=== PATIENT | female | born 2005 | race Two or more races ===

== ENCOUNTER 2025-01-26 03:13 | Emergency (ER) | payer MEDICAID ==
[~2025-01-26] VITALS: Ht 162.6 cm; Wt 63.5 kg
[2025-01-26 03:25] VITALS: BP 133/79; PULSE 140; RESP 24; TEMP 97.8; O2SAT 99
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
== END 2025-01-26 04:10 ==
LOC: EDBD 03:13 → ER 03:13
DX: T74.21XA Adult sexual abuse, confirmed, initial encounter (principal); Y92.89 Other specified places as the place of occurrence of the external cause

== ENCOUNTER 2025-05-23 05:10 | Emergency (ER) | payer MEDICAID ==
[~2025-05-23] VITALS: Ht 170.2 cm; Wt 81.0 kg
[2025-05-23 05:52] VITALS: PULSE 115; RESP 18; TEMP 98.1; O2SAT 97
--- NOTE | 2025-05-23 06:51 | ED.PDOC ---
Altered Mental Status HPI Comments A 19 year-old female presents to the ED via EMS with a chief complaint of ETOH intoxification. Per EMS, patient is experiencing head pain, neck pain, and associated right great toe pain with nail trauma. Upon evaluation by ED physician, patient is disoriented and not answering questions. Chief Complaint: ETOH Time Seen by MD: 06:30 Primary Care Provider: JAI Reviewed Notes: Ux Developer Designer Notes, Medications, Allergies Allergies: Coded Allergies: NO KNOWN ALLERGIES (Unverified , 08/11/16) Information Source: Emergency Med Personnel Mode of Arrival: EMS Severity: Moderate Duration: Since onset Associated Signs and Symptoms: Other (Head Pain, Neck Pain, ETOH Intoxification, Right Great Toe Pain ) Past Medical History PAST MEDICAL HISTORY: Anxiety Surgical History: Denies all surgeries STATE MANAGER History: Denies all STATE MANAGER Hx Family History Family History: Unknown Social History Smoker: Non-Smoker Alcohol: Denies ETOH Use Drugs: Denies Drug Use Lives In: Home X-Ray, Labs, Meds, VS Vital Signs Date Time Temp Pulse Resp B/P (MAP) Pulse Ox O2 Delivery O2 Flow Rate FiO2 05/23/25 05:52 115 18 97 Room Air* 0 21 05/23/25 05:52 98.1 114 18 108/71 (83) 97 98.1 05/23/25 05:10 98.3 120 20 133/72 (92) 97 98.3 SEPSIS Sepsis Screen Date sepsis recognized/suspect: May 23, 2025 Time Sepsis recognized/suspect: 0555 Recent Procedure: No On Antibiotic Therapy: No Respiratory Rate >20: No Heart Rate >90: No Temp<36 C (96.8 F) or >38.3 C: No SBP <90 or MAP <65 mmHG: No New Acute Mental Status Change: No Is the patient on CPAP, BIPAP,: No Physician Orders Complete Blood Count (05/23/25 07:11) Urinalysis (05/23/25 07:11) Blood Alcohol (05/23/25 07:11) Sodium Chloride 0.9% (05/23/25 07:15) Heplock Iv (05/23/25 07:11) Magnesium (05/23/25 07:11) Basic Metabolic Panel (05/23/25 07:11) Vital Signs Date Time Temp Pulse Resp B/P (MAP) Pulse Ox O2 Delivery O2 Flow Rate FiO2 05/23/25 05:52 115 18 97 Room Air* 0 21 05/23/25 05:52 98.1 114 18 108/71 (83) 97 98.1 05/23/25 05:10 98.3 120 20 133/72 (92) 97 98.3 Heart Score Heart Score: Heart Score Response (Comments) Value History N/A 0 EKG N/A 0 Age N/A 0 Risk Factors N/A 0 Troponin N/A 0 Total 0 I personally scribed for JUAN PABLO AVILES MD ([email or web address]) on 05/23/25 at 06:51. Electronically submitted by Rachna Victor ([place]). I personally scribed for JUAN PABLO AVILES MD ([email or web address]) on 05/23/25 at 07:20. Electronically submitted by Rachna Victor ([place]). JUAN PABLO AVILES MD May 23, 2025 06:51
--- NOTE | 2025-05-23 07:23 | ED.PDOC ---
History of Present Illness HPI Comments A 19 year-old female, with a PMHX of Anxiety, presents to the ED via EMS with a chief complaint of head and neck pain following ETOH intoxification. Per EMS, patient is experiencing head pain and associated right great toe pain with nail trauma. Upon evaluation by ED physician, patient is disoriented and not answering questions. Chief Complaint: ETOH Time Seen by MD: 06:30 Primary Care Provider: JAI Reviewed Notes: Sound Mixer Notes, Medications, Allergies Allergies: Coded Allergies: NO KNOWN ALLERGIES (Unverified , 08/11/16) Information Source: Emergency Med Personnel Mode of Arrival: EMS Severity: Moderate Timing: Hours Duration: Since onset Prehospital treatment: None Context: ETOH Intoxification Quality Moderate Associated signs and symptoms Head pain, Neck Pain, Right Great Toe Pain Past Medical History PAST MEDICAL HISTORY: Anxiety Surgical History: Denies all surgeries CORPORATE TRAVEL EXPERT History: Denies all CORPORATE TRAVEL EXPERT Hx Family History Family History: Unknown Social History Smoker: Non-Smoker Alcohol: Occasionally Drugs: Denies Drug Use Lives In: Home Constitutional: denies: chills, diaphoresis, fatigue, fever, malaise, sweats, weakness, others EENTM: denies: blurred vision, double vision, ear bleeding, ear discharge, ear drainage, ear pain, ear ringing, eye pain, eye redness, hearing loss, mouth pain, mouth swelling, nasal discharge, nose bleeding, nose congestion, nose pain, photophobia, tearing, throat pain, throat swelling, voice changes, others Respiratory: denies: cough, hemoptysis, orthopnea, SOB at rest, shortness of breath, SOB with excertion, stridor, wheezing, others Cardiovascular: denies: chest pain, dizzy spells, diaphoresis, Dyspnea on exertion, edema, irregular heart beat, left arm pain, lightheadedness, palpitations, PND, syncope, others Gastrointestinal: denies: abdomen distended, abdominal pain, blood streaked bowels, constipated, diarrhea, dysphagia, difficulty swallowing, hematemesis, melena, nausea, poor appetite, poor fluid intake, rectal bleeding, rectal pain, vomiting, others Genitourinary: denies: abnormal vagina bleeding, burning, dyspareunia, dysuria, flank pain, frequency, hematuria, incontinence, pain, , vagina discharge, urgency, others Neurological: reports: headache; denies: dizziness, fainting, left sided numbness, left sided weakness, numbness, paresthesia, pre-existing deficit, right sided numbness, right sided weakness, seizure, speech problems, tingling, tremors, weakness, others Musculoskeletal: reports: neck pain; denies: back pain, gout, joint pain, joint swelling, muscle pain, muscle stiffness, others Integumetry: denies: bruises, change in color, change in hair/nails, dryness, laceration, lesions, lumps, rash, wounds, others Allergic/Immunocompromised: denies: Difficulty Healing, Frequent Infections, Hives, Itching, others Hematologic/Lymphatic: denies: anemia, blood clots, easy bleeding, easy bruising, swollen glands, others Endocrine: denies: excessive hunger, excessive sweating, excessive thirst, excessive urination, flushing, intolerance to cold, intolerance to heat, unexplained weight gain, unexplained weight loss, others Psychiatric: denies: anxiety, bipolar disorder, depression, hopeless, panic disorder, schizophrenia, sleepless, suicidal, others All Other Systems: Reviewed and Negative Physical Exam General Appearance: Other (Asleep) HEENT: Normal ENT Inspection, Pharynx Normal, TMs Normal Neck: Full Range of Motion, Non-Tender, Normal, Normal Inspection Respiratory: Chest Non-Tender, Lungs Clear, No Accessory Muscle Use, No Respiratory Distress, Normal Breath Sounds Cardiovascular: No Edema, No JVD, No Murmur, No Gallop, Normal Peripheral Pulses, Regular Rate/Rhythm Breast Exam: Deferred Gastrointestinal: No Organomegaly, Non Tender, No Pulsatile Mass, Normal Bowel Sounds, Soft Genitalia: Deferred Pelvic: Deferred Rectal: Deferred Extremities: No calf tenderness, Normal capillary refill, Normal inspection, Normal range of motion, Non-tender, No pedal edema Neurologic: Alert, slp teacher II-XII nml as Tested, No Motor Deficits, Normal Affect, Normal Mood, No Sensory Deficits Cerebellar Function: Normal Reflexes: Normal Skin: Dry, Normal Color, Warm Peripheral Pulses: 1+ carotid (R), 1+ carotid (L) Lymphatic: No Adenopathy Was a procedure done? Was a procedure done?: No Differential Dx Considerations may include: Anxiety, ETOH Intoxification, Depression X-Ray, Labs, Meds, VS Vital Signs Date Time Temp Pulse Resp B/P (MAP) Pulse Ox O2 Delivery O2 Flow Rate FiO2 7/12/25 08:00 101 17 105/72 (83) 99 05/23/25 05:52 115 18 97 Room Air* 0 21 05/23/25 05:52 98.1 114 18 108/71 (83) 97 98.1 05/23/25 05:10 98.3 120 20 133/72 (92) 97 98.3 Lab Test 05/23/25 07:23 Range/Units White Blood Count 10.3 4.4-10.8 10^3/uL Red Blood Count 5.26 H 4.0-5.20 10^6/uL Hemoglobin 15.5 12.2-16.2 g/dL Hematocrit 46.3 H 36.0-46.0 % Mean Corpuscular Volume 87.9 80.0-100.0 fL Mean Corpuscular Hemoglobin 29.5 28.0-32.0 pg Mean Corpuscular Hemoglobin Concent 33.6 32.0-36.0 g/dL Red Cell Distribution Width 14.9 H 11.8-14.3 % Platelet Count 364 140-450 10^3/uL Mean Platelet Volume 7.6 6.9-10.8 fL Neutrophils (%) (Auto) 60.0 37.0-80.0 % Lymphocytes (%) (Auto) 30.4 10.0-50.0 % Monocytes (%) (Auto) 7.7 0.0-12.0 % Eosinophils (%) (Auto) 1.1 0.0-7.0 % Basophils (%) (Auto) 0.8 0.0-2.0 % Neutrophils # (Auto) 6.2 1.6-8.6 10 ^3/uL Lymphocytes # (Auto) 3.1 0.4-5.4 10 ^3/uL Monocytes # (Auto) 0.8 0-1.3 10 ^3/uL Eosinophils # (Auto) 0.1 0-0.8 10 ^3/uL Basophils # (Auto) 0.1 0-0.2 10 ^3/uL Nucleated Red Blood Cells 0.1 % Sodium Level 144 136-145 mmol/L Potassium Level 3.7 3.5-5.1 mmol/L Chloride Level 108 H 98-107 mmol/L Carbon Dioxide Level 21 20-31 mmol/L Anion Gap 15 5-15 Blood Urea Nitrogen 11 9-23 mg/dL Creatinine 0.78 0.550-1.02 mg/dL Glomerular Filtration Rate Calc 111 >90 mL/min BUN/Creatinine Ratio 14.1 10.0-20.0 Serum Glucose 91 74-106 mg/dL Calcium Level 10.1 8.7-10.4 mg/dL Magnesium Level 2.2 1.6-2.6 mg/dL Plasma/Serum Blood Alcohol 206.2 H <10 mg/dL Current Medications Medications (Trade) Dose Ordered Sig/Elsa Route Start Time Stop Time Status Last Admin Sodium Chloride 1,000 ml @ 1,000 mls/hr Q1H ONCE IVB 05/23/25 07:15 05/23/25 08:14 DC 05/23/25 08:32 X-Ray, Labs, Meds, VS Comment Course in the emergency department patient came in as alcohol intoxication Was hydrated and observed CBC normal Magnesium 2.2 BNP negative Blood alcohol 206 Patient will be discharged home after hydration Images Reviewed?: Images reviewed and evaluated by me Time of 1ST Reevaluation: 06:50 Reevaluation 1ST: Unchanged Time of 2ND Reevaluation: 18:50 Reevaluation 2ND: Improved Consultation: PCP Patient Education/Counseling: Diagnosis, Treatment, Prognosis, Need For Follow Up Family Education/Counseling: Diagnosis, Treatment, Prognosis, Need For Follow Up, No Family Present Medical Screening: No EMC Exist At This Time SEPSIS Sepsis Screen Date sepsis recognized/suspect: May 23, 2025 Time Sepsis recognized/suspect: 0555 Recent Procedure: No On Antibiotic Therapy: No Respiratory Rate >20: No Heart Rate >90: No Temp<36 C (96.8 F) or >38.3 C: No SBP <90 or MAP <65 mmHG: No New Acute Mental Status Change: No Is the patient on CPAP, BIPAP,: No Physician Orders Urinalysis (05/23/25 07:11) Heplock Iv (05/23/25 07:11) Vital Signs Date Time Temp Pulse Resp B/P (MAP) Pulse Ox O2 Delivery O2 Flow Rate FiO2 05/23/25 08:00 101 17 105/72 (83) 99 05/23/25 05:52 115 18 97 Room Air* 0 21 05/23/25 05:52 98.1 114 18 108/71 (83) 97 98.1 05/23/25 05:10 98.3 120 20 133/72 (92) 97 98.3 Laboratory Tests Test 05/23/25 07:23 White Blood Count 10.3 10^3/uL (4.4-10.8) Medications Medications Dose Ordered Sig/Elsa Route Start Time Stop Time Status Last Admin Dose Admin Sodium Chloride 1,000 ml @ 1,000 mls/hr Q1H ONCE IVB 05/23/25 07:15 05/23/25 08:14 DC 05/23/25 08:32 Departure 1 Departure Time of Disposition: 11:30 Impression: Primary Impression: Alcohol intoxication Disposition: LEFT AWOL/ELOPED Condition: Stable Additional Instructions: Continue to push fluids and stopped drinking Discharged With: Self, Relative Critical Care Note Critical Care Time?: No Stability Stability form required: No Heart Score Heart Score: Heart Score Response (Comments) Value History N/A 0 EKG N/A 0 Age <45 0 Risk Factors No known risk factors 0 Troponin N/A 0 Total 0 I personally scribed for JUAN PABLO AVILES MD ([email or web address]) on 05/23/25 at 07:23. Electronically submitted by Rachna Victor ([place]). I personally scribed for JUAN PABLO AVILES MD ([email or web address]) on 05/23/25 at 11:44. Electronically submitted by Rachna Victor ([place]). I personally scribed for JUAN PABLO AVILES MD ([email or web address]) on 05/23/25 at 18:07. Electronically submitted by Rachna Victor ([place]). JUAN PABLO AVILES MD May 23, 2025 07:23
[2025-05-23 08:00] VITALS: BP 105/72; PULSE 101; RESP 17; O2SAT 99
[2025-05-23 08:02] LABS: Hematocrit 46.3 % (36.0-46.0); Hemoglobin 15.5 g/dL (12.2-16.2); Mean Corpuscular Hemoglobin 29.5 pg (28.0-32.0); Mean Corpuscular Volume 87.9 fL (80.0-100.0); Nucleated Red Blood Cells % 0.1 %
[2025-05-23 08:10] LABS: Anion Gap 15 (5-15); Carbon Dioxide 21 mmol/L (20-31); Chloride 108 mmol/L (98-107); Potassium 3.7 mmol/L (3.5-5.1); Sodium 144 mmol/L (136-145)
[2025-05-23 08:11] LABS: Calcium 10.1 mg/dL (8.7-10.4)
[2025-05-23 08:16] LABS: BUN/Creatinine Ratio 14.1 (10.0-20.0); Blood Urea Nitrogen 11 mg/dL (9-23); Glucose 91 mg/dL (74-106); Magnesium 2.2 mg/dL (1.6-2.6)
[2025-05-23] MEDS: SODIUM CHLORIDE 0.9% 1,000 ML IVB ONE (08:32)
== END 2025-05-23 11:00 | disposition left against medical advice (07) ==
LOC: ER 05:10 → EDBD 05:10 → EDUNIT# 05:10 → ER 11:00
DX: F10.129 Alcohol abuse with intoxication, unspecified (principal); F41.9 Anxiety disorder, unspecified; Z79.899 Other long term (current) drug therapy; Y90.7 Blood alcohol level of 200-239 mg/100 ml
CPT/HCPCS: 36415; 80048; 80320; 83735; 85025; 96360; 99283; J7030